=== PATIENT | female | born 1945 | race Caucasian/White ===

== ENCOUNTER → 2016-10-07 | Outpatient (CLI) | payer MEDICARE, BC ==
--- NOTE | 2016-10-07 20:23 | MR ---
EXAM DATE: 10/07/16 PATIENT'S AGE: 71 Patient: KIARA GREEN Facility: [place], [place] Site . Site : 1945 Study: MRI Head [id number]/10/2017 10:55:12 AM Ordering Physician: Vivian Nichols Final Report: Indication: 71-year-old female. Migraine headache unspecified. Not intractable. Without aura. Technique: FLAIR axial, T2 axial, diffusion axial, ADC map axial, susceptibility weighted axial and volumetric multiplanar T1 weighted images acquired. Findings: There is no restricted diffusion. There is no pathologic susceptibility. For the patient`s age ventricles are small normal. Cerebellar tonsils normally situated. 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 There is no pathologic intra-axial signal. Subarachnoid spaces over the high paramedian frontal convexities are prominent with findings suggesting of remodeling of the inner table. Note coronal image #36 of series 202. Paranasal and mastoid air cells are clear. Usual flow void is present in the [place]. Intraorbital tissues are normal. Impression: 1. No restricted diffusion, no pathologic susceptibility no acute intracranial findings. 2. 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 3. For patient`s age, the ventricles are small-normal. Considerations include normal developmental variation and pseudotumor cerebri. Correlation for findings related to tumor such as a papilledema is suggested. There is no dilatation of the optic nerve sleeves to suggest increased intracranial pressure. 4. Prominent CSF spaces over the high paramedian frontal convexities likely represent arachnoid cysts as evidenced by remodeling of the inner table on the left. This finding has doubtful clinical significance. Dictated by Kendall Rucker MD @ Oct 07 2016 4:44PM (Electronic Signature) Report Signed by Proxy and Original Signed Document filed in the Medical Record. [facility]
== END ==
LOC: MW.MRI 09:12
PROVIDERS: ATTEND Family Medicine
DX: G43.909 Migraine, unspecified, not intractable, without status migrainosus (principal); J01.90 Acute sinusitis, unspecified
CPT/HCPCS: 70551; G0463

== ENCOUNTER → 2016-10-13 | Outpatient (CLI) | payer MEDICARE, BC | LOC: MW.CHFP 08:00 | PROVIDERS: ATTEND Family Medicine | DX: G43.909 Migraine, unspecified, not intractable, without status migrainosus (principal) | CPT/HCPCS: G0463 ==

== ENCOUNTER 2017-02-23 00:39 | Emergency (ER) | payer MEDICARE, BC ==
[2017-02-23] MEDS ORDERED: Sodium Chloride 0.9% 2.5 ML Syringe FLUSH PRN (00:54)
[2017-02-23] MEDS ORDERED: Sodium Chloride 0.9% 10 ML Syringe FLUSH PRN (00:54)
[2017-02-23] MEDS ORDERED: Aspirin 81 MG Tab.Chew PO ONE (00:54)
[2017-02-23] MEDS ORDERED: Pantoprazole 40 MG Vial IVPUSH ONE (00:54)
--- NOTE | 2017-02-23 00:59 | EDM.PDOC ---
ED HPI GENERAL MEDICAL PROBLEM - General Chief Complaint: Chest Pain Stated Complaint: CHEST PAIN Time Seen by Provider: 02/23/17 00:41 - History of Present Illness INITIAL COMMENTS - FREE TEXT/NARRATIVE: HISTORY AND PHYSICAL: History of present illness: The patient is a 71-year-old female with a history of hypercholesterolemia and hypothyroidism for which she takes medications and she follows in our family practice clinic; the patient presents tonight episodic lower midsternal/ epigastric discomfort that has been ongoing for the last 24 hours. Patient states she has had several episodes of this each one lasting approximately 30- 40 minutes and most associated with some nausea but no diaphoresis shortness of breath vomiting or syncope. The patient said she has been using over-the- counter Carly-[place] to help her bowels and this will relieve the discomfort. She says that in the last 24 hour she said proximally 12 episodes of this discomfort. The patient thought it was acid reflux and only came in this evening because discomfort radiated to her mid back between her shoulder blades and that concerned her. On arrival here in the emergency department she has no chest discomfort no epigastric discomfort and no discomfort in her back. The patient said that this evening and she was getting ready to go to bed she had the discomfort and use the C[place] p.m. and try to go to sleep but when she was unable to sleep and the pain moved to her back she thought she should come here. He did not radiate to her arm or jaw. She is currently not short of breath or nauseated. The patient has no cigarette social history and has a history of a father having a CABG in his 70s. The patient had a wellness blood draw here at our hospital on February 08 which included a CBC CMP TSH cholesterol and triglycerides all of which were reviewed by me. They were all within normal limits. The patient also had a myocardial stress test performed here on June 30, 2016 and those results were also reviewed by me. The Cardiolite exercise stress component of it resulted in a negative stress test for ischemic ST changes but poor exercise tolerance. The nuclear medicine component of it revealed no evidence of myocardial ischemia normal ventricular chamber size and EF of approximately 70%. The patient states she was not told that she needed any emergent follow-up with her provider clinic. The patient currently has no abdominal complaints and says that she has had no abdominal surgeries. Review of systems: As per history of present illness and below otherwise all systems reviewed and negative. Past medical history: As per history of present illness and as reviewed below otherwise noncontributory. Surgical history: As per history of present illness and as reviewed below otherwise noncontributory. Social history: No reported history of drug or alcohol abuse. Family history: As per history of present illness and as reviewed below otherwise noncontributory. Physical exam: Gen.: Well-developed well-nourished female who is nontoxic and vital signs of been reviewed by me. She moves easily in the ED without distress. HEENT: Atraumatic, normocephalic, pupils reactive, negative for conjunctival pallor or scleral icterus, mucous membranes moist, throat clear, neck supple, nontender, trachea midline. Lungs: Clear to auscultation, breath sounds equal bilaterally, chest nontender. No worker breathing or sensory muscle use Heart: S1S2, regular, negative for clicks, rubs, or JVD. Abdomen: Soft, nondistended, nontender. On deep palpation in the epigastrium and upper quadrants I am unable to reproduce any discomfort. Negative for masses or hepatosplenomegaly. Negative for costovertebral tenderness. Pelvis: Stable nontender. Genitourinary: Deferred. Rectal: Deferred. Extremities: Atraumatic, negative for cords or calf pain. Neurovascular unremarkable. No pedal edema or leg asymmetry Neuro: Awake, alert, oriented. Cranial nerves II through XII unremarkable. Cerebellum unremarkable. Motor and sensory unremarkable throughout. Exam nonfocal. Skin: No diaphoresis, no overt rashes or lesions and turgor is normal Diagnostics: EKG CBC CMP amylase lipase troponin chest x-ray Therapeutics: IV O2 monitor aspirin Protonix Patient states she is feeling much improved after the proton next and all testing results were discussed with her and her at bedside. I have offered them admission for serial EKGs and enzymes and cardiac monitoring and they defer at this time. I have also offered to do a CT scan of the chest and abdomen to see if we can identify any pathology triggering her discomfort and again she would like to defer that at this time. They'd prefer to follow-up in the clinic with Dr. Park and pursue GI testing at that time. I've advised him of the risks and benefits and the patient is competent and capable of making her decisions and still defers the admission. I will prescribe Protonix for home and strongly advised close follow-up with their family physician either tomorrow or on Monday. I told him to call the clinic for this appointment. I've advised him on reasons to return and if she goes home and changes her mind she can return for admission. Impression: Chest/epigastric pain etiology unclear stable deferring admission Definitive disposition and diagnosis as appropriate pending reevaluation and review of above. Sternal to MidBack Pain Score (Numeric/FACES): 4 - Related Data Allergies Allergy/AdvReac Type Severity Reaction Status Date / Time No Known Allergies Allergy Verified 02/23/17 00:45 Home Meds: Home Meds Levothyroxine [Synthroid] 88 mcg PO ACBREAKFAST 05/10/15 [History] atorvaSTATin [Lipitor] 20 mg PO BEDTIME 05/10/15 [History] Past Medical History Endocrine/Metabolic History: Reports: Hypothyroidism - Past Surgical History Female Surgical History: Reports: Hysterectomy Social & Family History - Family History Family Medical History: Noncontributory - Tobacco Use Smoking Status *Q: Never Smoker Second Hand Smoke Exposure: No - Recreational Drug Use Recreational Drug Use: No ED ROS GENERAL - Review of Systems Review Of Systems: ROS reveals no pertinent complaints other than HPI. ED EXAM, GENERAL - Physical Exam Exam: See Below (See dictation) Course - Vital Signs Last Recorded V/S: Last Vital Signs Temp 36.2 C 02/23/17 00:43 Pulse 64 02/23/17 01:00 Resp 14 02/23/17 01:00 BP 149/83 H 02/23/17 01:00 Pulse Ox 95 02/23/17 01:00 - Orders/Labs/Meds Orders: Active Orders 24 hr Category Date Time Status Cardiac Monitoring [RC] . DIRECTED Care 02/23/17 00:53 Active EKG Documentation Completion [RC] STAT Care 02/23/17 00:53 Active Oxygen Therapy, ED [RC] ASDIRECTED Care 02/23/17 00:53 Active Pulse Oximetry [RC] ASDIRECTED Care 02/23/17 00:53 Active Chest 1V Frontal [CR] Stat Exams 02/23/17 00:53 Taken Sodium Chloride 0.9% [Saline Flush] Med 02/23/17 00:54 Active 10 ml FLUSH ASDIRECTED PRN Sodium Chloride 0.9% [Saline Flush] Med 02/23/17 00:54 Active 2.5 ml FLUSH ASDIRECTED PRN Saline Lock Insert [OM.PC] Stat Oth 02/23/17 00:53 Ordered Medication Orders Sodium Chloride (Saline Flush) 10 ml FLUSH ASDIRECTED PRN PRN Reason: Keep Vein Open Last Admin: 02/23/17 01:10 Dose: 10 ml Sodium Chloride (Saline Flush) 2.5 ml FLUSH ASDIRECTED PRN PRN Reason: Keep Vein Open Last Admin: 02/23/17 01:05 Dose: 2.5 ml Labs: Laboratory Tests 02/23/17 02/23/17 02/23/17 Range/Units 00:52 00:52 00:52 WBC 7.53 (4.0-11.0) K/uL RBC 4.21 L (4.30-5.90) M/uL Hgb 13.0 (12.0-16.0) g/dL Hct 38.3 (36.0-46.0) % MCV 91.0 (80.0-98.0) fL MCH 30.9 (27.0-32.0) pg MCHC 33.9 (31.0-37.0) g/dL RDW Std Deviation 39.9 (28.0-62.0) fl RDW Coeff of Faye 12 (11.0-15.0) % Plt Count 180 (150-400) K/uL MPV 9.50 (7.40-12.00) fL Neut % (Auto) 43.8 L (48.0-80.0) % Lymph % (Auto) 43.3 H (16.0-40.0) % [place] % (Auto) 11.2 (0.0-15.0) % Eos % (Auto) 1.3 (0.0-7.0) % Baso % (Auto) 0.4 (0.0-1.5) % Neut # (Auto) 3.3 (1.4-5.7) K/uL Lymph # (Auto) 3.3 H (0.6-2.4) K/uL [place] # (Auto) 0.8 (0.0-0.8) K/uL Eos # (Auto) 0.1 (0.0-0.7) K/uL Baso # (Auto) 0.0 (0.0-0.1) K/uL Sodium 140 (136-146) mmol/L Potassium 3.9 (3.5-5.1) mmol/L Chloride 107 (98-110) mmol/L Carbon Dioxide 25 (21-31) mmol/L BUN 13 (6.0-23.0) mg/dL Creatinine 0.8 (0.6-1.5) mg/dL Est Cr Clr Drug Dosing 67.22 mL/min Estimated GFR (MDRD) > 60.0 ml/min Glucose 102 (60-110) mg/dL Calcium 9.4 (8.8-10.8) mg/dL Total Bilirubin 0.3 (0.1-1.5) mg/dL AST 19 (5-40) IU/L ALT 17 (8-54) IU/L Alkaline Phosphatase 41 (40-150) Troponin I < 0.10 (0.0-0.29) NG/ML Total Protein 6.8 (6.0-8.0) g/dL Albumin 4.0 (3.4-4.8) g/dL Globulin 2.8 (2.0-3.5) g/dL Albumin/Globulin Ratio 1.4 (1.3-2.8) Amylase 60 (10-90) U/L Lipase 65 (7-80) U/L Meds: Medications Generic Name Dose Route Start Last Admin Trade Name Freq PRN Reason Stop Dose Admin Sodium Chloride 10 ml 02/23/17 00:54 02/23/17 01:10 Saline Flush FLUSH 10 ml ASDIRECTED PRN Administration Keep Vein Open Sodium Chloride 2.5 ml 02/23/17 00:54 02/23/17 01:05 Saline Flush FLUSH 2.5 ml ASDIRECTED PRN Administration Keep Vein Open Discontinued Medications Generic Name Dose Route Start Last Admin Trade Name Freq PRN Reason Stop Dose Admin Aspirin 324 mg 02/23/17 00:54 02/23/17 01:04 Aspirin PO 02/23/17 00:55 324 mg ONETIME ONE Administration Pantoprazole Sodium 40 mg 02/23/17 00:54 02/23/17 01:05 Protonix Iv IVPUSH 02/23/17 00:55 40 mg .BOLUS ONE Administration Departure - Departure Time of Disposition: 01:58 Disposition: Home, Self-Care 01 Condition: Good Clinical Impression: Epigastric pain Chest pain Qualifiers: Chest pain type: unspecified Qualified Code(s): R07.9 - Chest pain, unspecified - Discharge Information Forms: ED Department Discharge Additional Instructions: The following information is given to patients seen in the emergency department who are being discharged to home. This information is to outline your options for follow-up care. We provide all patients seen in our emergency department with a follow-up referral. The need for follow-up, as well as the timing and circumstances, are variable depending upon the specifics of your emergency department visit. If you don't have a primary care physician on staff, we will provide you with a referral. We always advise you to contact your personal physician following an emergency department visit to inform them of the circumstance of the visit and for follow-up with them and/or the need for any referrals to a consulting specialist. The emergency department will also refer you to a specialist when appropriate. This referral assures that you have the opportunity for followup care with a specialist. All of these measure are taken in an effort to provide you with optimal care, which includes your followup. Under all circumstances we always encourage you to contact your private physician who remains a resource for coordinating your care. When calling for followup care, please make the office aware that this follow-up is from your recent emergency room visit. If for any reason you are refused follow-up, please contact the [facility] emergency department at and ask to speak to the emergency department charge nurse. [facility] Primary care- Internal [place] [address] Please contact the clinic tomorrow for follow-up this week as we discussed and use the Protonix you have prescribed and as directed. Please return to ER as needed and as discussed. - My Orders Last 24 Hours: My Active Orders 02/23/17 00:53 Cardiac Monitoring [RC] . DIRECTED EKG Documentation Completion [RC] STAT Oxygen Therapy, ED [RC] ASDIRECTED Pulse Oximetry [RC] ASDIRECTED Chest 1V Frontal [CR] Stat Saline Lock Insert [OM.PC] Stat 02/23/17 00:54 Sodium Chloride 0.9% [Saline Flush] 10 ml FLUSH ASDIRECTED PRN Sodium Chloride 0.9% [Saline Flush] 2.5 ml FLUSH ASDIRECTED PRN - Assessment/Plan Last 24 Hours: My Active Orders 02/23/17 00:53 Cardiac Monitoring [RC] . DIRECTED EKG Documentation Completion [RC] STAT Oxygen Therapy, ED [RC] ASDIRECTED Pulse Oximetry [RC] ASDIRECTED Chest 1V Frontal [CR] Stat Saline Lock Insert [OM.PC] Stat 02/23/17 00:54 Sodium Chloride 0.9% [Saline Flush] 10 ml FLUSH ASDIRECTED PRN Sodium Chloride 0.9% [Saline Flush] 2.5 ml FLUSH ASDIRECTED PRN
[2017-02-23 01:25] LABS: CHLORIDE,CL 107 mmol/L (98-110); SODIUM,NA 140 mmol/L (136-146)
[2017-02-23 02:12] VITALS: BP 120/80
--- NOTE | 2017-02-23 09:44 | CR ---
EXAM DATE: 02/23/17 PATIENT'S AGE: 71 Patient: KIARA GREEN Facility: [place], [place] Site . Site : 1945 Study: XRay Chest [id number]/27/2017 1:08:47 AM Ordering Physician: Camden Padilla Final Report: INDICATIONS: Chest pain. TECHNIQUE: Chest 1 view. COMPARISON: None FINDINGS: No pneumothorax, pleural effusion or airspace consolidation. Cardiac and mediastinal contours are within normal limits. Upper abdomen and osseous structures show no acute abnormality. IMPRESSION: No evidence of acute cardiopulmonary disease. Dictated by Madhu Urbina MD @ 02/23/2017 1:12:42 AM Dictated by: Madhu Urbina MD @ 02/23/2017 01:12:50 (Electronic Signature) Report Signed by Proxy. [facility]
== END 2017-02-23 02:10 | disposition home or self-care (01) ==
LOC: MW.ED 00:39
DX: R07.9 Chest pain, unspecified (principal); R10.13 Epigastric pain; E03.9 Hypothyroidism, unspecified; Z90.710 Acquired absence of both cervix and uterus
CPT/HCPCS: 71010; 80053; 82150; 83690; 84484; 85025; 93005; 96374; 99285; A9270; C9113; 99284

== ENCOUNTER 2018-03-13 09:00 | Day surgery (SDC) | payer MEDICARE, BC ==
[~2018-03-13 09:00] MED LIST: Lactated Ringers 1,000 ML IV SCH; Lidocaine 2% 5 ML SDV ONE; Propofol 200 MG/20 ML SDV ONE; Sodium Chloride 0.9% 10 ML Syringe FLUSH PRN; Sodium Chloride 0.9% 2.5 ML Syringe FLUSH PRN; fentaNYL 100 MCG/2 ML SDV ONE
--- NOTE | 2018-03-13 09:24 | PCM.PREANE ---
Preanesthetic Assessment - Anesthesia/Transfusion/Family Hx Anesthesia History: Prior Anesthesia Without Reaction Family History of Anesthesia Reaction: No Transfusion History: No Prior Transfusion(s) Intubation History: Unknown - Review of Systems General: No Symptoms Pulmonary: No Symptoms Cardiovascular: No Symptoms Gastrointestinal: No Symptoms, Other (family h/o colon cancer) Neurological: No Symptoms Other: Reports: None - Physical Assessment Height: 1.73 m Weight: 71.214 kg ASA Class: 2 Mental Status: Alert & Oriented x3 Airway Class: Mallampati = 2 Dentition: Reports: Normal Dentition Thyro-Mental Finger Breadths: 2 ROM/Head Extension: Full Lungs: Clear to Auscultation, Normal Respiratory Effort Cardiovascular: Regular Rate, Regular Rhythm - Allergies Allergies/Adverse Reactions: Allergies Allergy/AdvReac Type Severity Reaction Status Date / Time contrast media Allergy "felt like Uncoded 03/08/18 13:08 I was going to " - Blood Blood Available: No - Anesthesia Plan Pre-Op Medication Ordered: None - Acknowledgements Anesthesia Type Planned: MAC Pt an Appropriate Candidate for the Planned Anesthesia: Yes Alternatives and Risks of Anesthesia Discussed w Pt/Guardian: Yes Pt/Guardian Understands and Agrees with Anesthesia Plan: Yes PreAnesthesia Questionnaire HEENT History: Reports: Other (See Below) Other HEENT History: wears glasses Cardiovascular History: Reports: High Cholesterol Gastrointestinal History: Reports: GERD Other Gastrointestinal History: occasional reflux Genitourinary History: Reports: Other (See Below) Other Genitourinary History: hx UTI's MANAGER ENGINE History: Reports: Neurological History: Reports: Concussion, Migraines (not in a long time) Endocrine/Metabolic History: Reports: Hypothyroidism - Past Surgical History Head Surgeries/Procedures: Reports: None GI Surgical History: Reports: Colonoscopy (2 or 3 times) Female Surgical History: Reports: Hysterectomy - SUBSTANCE USE Smoking Status *Q: Never Smoker Recreational Drug Use History: No - HOME MEDS Home Medications: Home Meds Levothyroxine [Synthroid] 88 mcg PO ACBREAKFAST 05/10/15 [History] atorvaSTATin [Lipitor] 20 mg PO BEDTIME 05/10/15 [History] Acyclovir [Zovirax 5% Oint] 1 applic TOP ASDIRECTED PRN 03/08/18 [History] Aspirin [[place] Aspirin] 81 mg PO DAILY 03/08/18 [History] Calcium Carbonate [Calcium] 1 tab PO BID 03/08/18 [History] Estradiol [Estrace 0.01% Vaginal Crm] 1 applic VAG ASDIRECTED 03/08/18 [History] Ibuprofen 2 - 3 tab PO ASDIRECTED PRN 03/08/18 [History] Isomethepten/Caf/Acetaminophen [Nzeocjrsry-Dmnd-Wnmaokivzhryd] 2 tab PO ASDIRECTED PRN 03/08/18 [History] Triamcinolone Acetonide [Triamcinolone Acetonide 0.1% Crm] 1 applic TOP ASDIRECTED PRN 03/08/18 [History] Zolpidem Tartrate 0.5 tab PO BEDTIME PRN 03/08/18 [History] - CURRENT (IN HOUSE) MEDS Current Meds: Current Medications Lactated Ringer's (Ringers, Lactated) 1,000 mls @ 125 mls/hr IV ASDIRECTED WINNIE Sodium Chloride (Saline Flush) 10 ml FLUSH ASDIRECTED PRN PRN Reason: Keep Vein Open Sodium Chloride (Saline Flush) 2.5 ml FLUSH ASDIRECTED PRN PRN Reason: Keep Vein Open Sodium Chloride (Saline Flush) 10 ml FLUSH ASDIRECTED PRN PRN Reason: Keep Vein Open Sodium Chloride (Saline Flush) 2.5 ml FLUSH ASDIRECTED PRN PRN Reason: Keep Vein Open Discontinued Medications Fentanyl (Sublimaze) Confirm Administered Dose 100 mcg .ROUTE .STK-MED ONE Stop: 03/13/18 07:02 Lidocaine (Xylocaine-Mpf 2%) Confirm Administered Dose 5 ml .ROUTE .STK-MED ONE Stop: 03/13/18 07:02 Propofol (Diprivan 20 Ml) Confirm Administered Dose 400 mg .ROUTE .STK-MED ONE Stop: 03/13/18 07:02
[2018-03-13] MEDS ORDERED: Glycopyrrolate 0.2 MG/ML SDV ONE (10:26)
--- NOTE | 2018-03-13 10:48 | PCM.OPNOTE ---
- General Post-Op/Procedure Note Date of Surgery/Procedure: 03/13/18 Operative Procedure(s): diagnostic colonoscopy Findings: rectal polyp, diverticulosis Pre Op Diagnosis: change in bowel habits Post-Op Diagnosis: diverticulosis, rectal polyp Anesthesia Technique: [facility] Primary Surgeon: Shavon Greene Condition: Good
--- NOTE | 2018-03-13 11:00 | PCM.POSTAN ---
POST ANESTHESIA ASSESSMENT - MENTAL STATUS Mental Status: Alert, Oriented - RESPIRATORY Respiratory Status: Respiratory Rate WNL, Airway Patent, O2 Saturation Stable - CARDIOVASCULAR CV Status: Pulse Rate WNL, Blood Pressure Stable - GASTROINTESTINAL GI Status: No Symptoms - POST OP HYDRATION Hydration Status: Adequate & Stable
[2018-03-13 11:12] VITALS: BP 109/64
--- NOTE | 2018-03-14 00:12 | OR ---
SURGEON: FAYE NG MD DATE OF PROCEDURE: 03/13/2018 PREOPERATIVE DIAGNOSIS: Change in bowel habits. POSTOPERATIVE DIAGNOSES: 1. Diverticulosis. 2. Rectal polyp. PROCEDURE PERFORMED: Diagnostic colonoscopy. ANESTHESIA: MAC. INSTRUMENT USED: Olympus colonoscope. EXTENT OF EXAM: To the cecum. PREPARATION: Good. LIMITATIONS: None. INDICATION FOR EXAMINATION: The patient is a 72-year-old female, who presents with an acute change in her bowel habits. Her last colonoscopy was 5 years ago and was normal. Her mother was diagnosed with colon cancer at the age of 75. We discussed the need for a diagnostic colonoscopy. I explained the procedure, expected perioperative course, and risks including bleeding, infection, or damage to surrounding structures including perforation. The patient verbalized understanding and wishes to proceed. PROCEDURE IN DETAIL: The patient was brought to the endoscopy suite and placed in the left lateral decubitus position. A time-out was completed verifying the patient's name, age, date of , allergies, and procedure to be performed. Monitored anesthesia care was induced, and continuous oxygen was provided via nasal cannula throughout the procedure. After adequate sedation was achieved, a digital rectal exam was performed. This exam was within normal limits. A well- lubricated colonoscope was inserted in the rectum and advanced under direct visualization to the level of the cecum. The cecum was identified by both visual and anatomic landmarks. Photographs were taken of the cecal cap; however, I was unable to retroflex the scope within the cecum due to looping of the scope more proximally. The scope was then fully withdrawn while examining the color, texture, anatomy, and integrity of the mucosa from the cecum to the anal canal. The patient was found to have diverticulosis throughout the sigmoid colon. A small 1 to 2 mm sessile polyp was noted within the rectum. This was removed using cold biopsy forceps. The scope was then retroflexed to allow visualization of the anal canal opening. This appeared normal, and photographs were taken. The scope was then straightened out and fully withdrawn. The cecum to anus time was 9 minutes. The patient tolerated the procedure well and was taken to the PACU in stable condition. ENDOSCOPIC DIAGNOSES: 1. Diverticulosis. 2. Polyp of the rectum. RECOMMENDATIONS: Follow up in clinic in 2 weeks. KIRIT MOJICA /[id number]
== END 2018-03-13 12:00 | disposition home or self-care (01) ==
LOC: MW.SDS 09:00
PROVIDERS: ATTEND Surgery
DX: R19.4 Change in bowel habit (principal); K62.1 Rectal polyp; K57.30 Diverticulosis of large intestine without perforation or abscess without bleeding; E03.9 Hypothyroidism, unspecified; E78.00 Pure hypercholesterolemia, unspecified; K21.9 Gastro-esophageal reflux disease without esophagitis; N64.4 Mastodynia; Z86.010 Personal history of colon polyps; Z79.82 Long term (current) use of aspirin; Z79.899 Other long term (current) drug therapy; Z91.041 Radiographic dye allergy status; Z80.0 Family history of malignant neoplasm of digestive organs
CPT/HCPCS: 45380; J2704; J3010; J3490; J7120; 88305

== ENCOUNTER 2019-04-01 18:24 | Emergency (ER) | payer MEDICARE, BC ==
--- NOTE | 2019-04-01 18:39 | EDM.PDOC ---
ED HPI GENERAL MEDICAL PROBLEM - General Chief Complaint: Genitourinary Problem Stated Complaint: UTI Time Seen by Provider: 04/01/19 18:31 - History of Present Illness INITIAL COMMENTS - FREE TEXT/NARRATIVE: HISTORY AND PHYSICAL: History of present illness: Patient 73-year-old white female presents with a concern of discomfort with urination frequency 1 day she's had similar episodes in the past consistent with urinary tract infection. She denies back pain fever chills nausea vomiting or other complaints Review of systems: As per history of present illness and below otherwise all systems reviewed and negative. Past medical history: As per history of present illness and as reviewed below otherwise noncontributory. Surgical history: As per history of present illness and as reviewed below otherwise noncontributory. Social history: No reported history of drug or alcohol abuse. Family history: As per history of present illness and as reviewed below otherwise noncontributory. Physical exam: HEENT: Atraumatic, normocephalic, pupils reactive, negative for conjunctival pallor or scleral icterus, mucous membranes moist, throat clear, neck supple, nontender, trachea midline. Lungs: Clear to auscultation, breath sounds equal bilaterally, chest nontender. Heart: S1S2, regular, negative for clicks, rubs, or JVD. Abdomen: Soft, nondistended, nontender. Negative for masses or hepatosplenomegaly. Negative for costovertebral tenderness. Pelvis: Stable nontender. Genitourinary: Deferred. Rectal: Deferred. Extremities: Atraumatic, negative for cords or calf pain. Neurovascular unremarkable. Neuro: Awake, alert, oriented. Cranial nerves II through XII unremarkable. Cerebellum unremarkable. Motor and sensory unremarkable throughout. Exam nonfocal. Diagnostics: UA Therapeutics: Cipro 500 mg by mouth Pyridium 200 mg by mouth Impression: #1 urinary tract infection Definitive disposition and diagnosis as appropriate pending reevaluation and review of above. - Related Data Allergies Allergy/AdvReac Type Severity Reaction Status Date / Time contrast media Allergy "felt like Uncoded 04/01/19 18:37 I was going to " Home Meds: Home Meds Levothyroxine [Synthroid] 88 mcg PO ACBREAKFAST 05/10/15 [History] atorvaSTATin [Lipitor] 20 mg PO BEDTIME 05/10/15 [History] Acyclovir [Zovirax 5% Oint] 1 applic TOP ASDIRECTED PRN 03/08/18 [History] Aspirin [[place] Aspirin EC] 81 mg PO DAILY 03/08/18 [History] Calcium Carbonate [Calcium] 1 tab PO BID 03/08/18 [History] Estradiol [Estrace 0.01% Vaginal Crm] 1 applic VAG ASDIRECTED 03/08/18 [History] Ibuprofen 2 - 3 tab PO ASDIRECTED PRN 03/08/18 [History] Isomethepten/Caf/Acetaminophen [Zkberwgtxm-Gdmp-Lplrtfplwytoe] 2 tab PO ASDIRECTED PRN 03/08/18 [History] Triamcinolone Acetonide [Triamcinolone Acetonide 0.1% Crm] 1 applic TOP ASDIRECTED PRN 03/08/18 [History] Zolpidem Tartrate 0.5 tab PO BEDTIME PRN 03/08/18 [History] Past Medical History HEENT History: Reports: Other (See Below) Other HEENT History: wears glasses Cardiovascular History: Reports: High Cholesterol Gastrointestinal History: Reports: GERD Other Gastrointestinal History: occasional reflux Genitourinary History: Reports: Other (See Below) Other Genitourinary History: hx UTI's 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 ED EXAM, GENERAL - Physical Exam Exam: See Below (See dictation) Departure - Departure Time of Disposition: 18:38 Disposition: Home, Self-Care 01 Condition: Good Clinical Impression: UTI, Urinary tract infectious disease - Discharge Information Referrals: Lex Park MD [Primary Care Provider] - Additional Instructions: The following information is given to patients seen in the emergency department who are being discharged to home. This information is to outline your options for follow-up care. We provide all patients seen in our emergency department with a follow-up referral. The need for follow-up, as well as the timing and circumstances, are variable depending upon the specifics of your emergency department visit. If you don't have a primary care physician on staff, we will provide you with a referral. We always advise you to contact your personal physician following an emergency department visit to inform them of the circumstance of the visit and for follow-up with them and/or the need for any referrals to a consulting specialist. The emergency department will also refer you to a specialist when appropriate. This referral assures that you have the opportunity for followup care with a specialist. All of these measure are taken in an effort to provide you with optimal care, which includes your followup. Under all circumstances we always encourage you to contact your private physician who remains a resource for coordinating your care. When calling for followup care, please make the office aware that this follow-up is from your recent emergency room visit. If for any reason you are refused follow-up, please contact the [facility] emergency department at and asked to speak to the emergency department charge nurse. Cipro Pyridium as prescribed push fluids follow primary medical doctor as needed as discussed and return as needed as discussed
[2019-04-01 18:41] VITALS: BP 114/77
[2019-04-01] MEDS ORDERED: Ciprofloxacin 500 MG Tab PO ONE (18:44)
[2019-04-01] MEDS ORDERED: Phenazopyridine 200 MG Tab PO ONE (18:45)
== END 2019-04-01 19:10 | disposition home or self-care (01) ==
LOC: MW.ED 18:24
DX: N39.0 Urinary tract infection, site not specified (principal); E78.00 Pure hypercholesterolemia, unspecified; E03.9 Hypothyroidism, unspecified; Z79.82 Long term (current) use of aspirin; Z79.899 Other long term (current) drug therapy; Z91.041 Radiographic dye allergy status; Z90.710 Acquired absence of both cervix and uterus
CPT/HCPCS: 81001; 87086; 99283; A9270; 87088; 87186

== ENCOUNTER 2019-07-16 02:57 | Emergency (ER) | payer MEDICARE, BC ==
[2019-07-16] MEDS ORDERED: Sodium Chloride 0.9% 10 ML Syringe FLUSH PRN (03:04)
[2019-07-16] MEDS ORDERED: Aspirin 81 MG Tab.Chew PO ONE (03:04)
[2019-07-16] MEDS ORDERED: Pantoprazole 80 MG in Sodium Chloride 0.9% 20 ML IVPUSH ONE (03:04)
[2019-07-16] MEDS ORDERED: Sodium Chloride 0.9% 2.5 ML Syringe FLUSH PRN (03:04)
[2019-07-16] MEDS ORDERED: Nitroglycerin 2% Oint 1 GM UD Packet TOP ONE (03:09)
--- NOTE | 2019-07-16 03:09 | EDM.PDOC ---
ED HPI GENERAL MEDICAL PROBLEM - General Stated Complaint: CHEST PAIN Time Seen by Provider: 07/16/19 03:03 - History of Present Illness INITIAL COMMENTS - FREE TEXT/NARRATIVE: HISTORY AND PHYSICAL: History of present illness: Patient is a 73-year-old female with hypercholesterolemia and hypothyroidism who is never had cardiac or pulmonary issues and has never had cardiac testing and presents with mid lower sternal chest pain that started last evening while she was at a concert at 930pm. The patient says she has a normal day yesterday without any upper respiratory symptoms cough fever and has not had any trauma or stomach pain. She ate normally and had no nausea vomiting or diarrhea and no history of acid reflux or hiatal hernia. Patient said the pain came on gradually and initially was intermittent and she also seemed to have an ache in her back and she took an piri-loz-qvrvtup Pepcid and it seemed to improve it and then this morning the pain restarted and she took another kssp-jrn-ndchbav Pepcid and it is improving but not gone so she thought she should seek evaluation. Before she came in and took the Pepcid she would rate the pain as a 7/10 and it was like a pressure-like sensation only in the mid lower sternum without radiation or associated diaphoresis lightheadedness shortness of breath nausea or vomiting. Currently in the ED she is rating it as a 2/10. She has no leg pain or swelling and no recent travel and no other systemic issues. The patient still has her gallbladder but did not eat any rich or fatty foods this past evening. She does take antacid intermittently but not on a regular basis and has never been evaluated for a GI problem. He did not take any aspirin and only took the woal-wyy-edzwvqu Pepcid prior to coming here Review of systems: As per history of present illness and below otherwise all systems reviewed and negative. Past medical history: As per history of present illness and as reviewed below otherwise noncontributory. Surgical history: As per history of present illness and as reviewed below otherwise noncontributory. Social history: No reported history of drug or alcohol abuse. Family history: As per history of present illness and as reviewed below otherwise noncontributory. Physical exam: Dental: Well-developed well-nourished female who is nontoxic and vital signs are noted by me. HEENT: Atraumatic, normocephalic, negative for conjunctival pallor or scleral icterus, mucous membranes moist, throat clear, neck supple, nontender, trachea midline. Lungs: Clear to auscultation, breath sounds equal bilaterally, chest nontender. No wheezing stridor or work of breathing Heart: S1S2, regular, negative for clicks, rubs, or JVD. Abdomen: Soft, nondistended, nontender. I palpate the epigastrium the patient says she does feel pressure but it is not pain specifically. Bowel sounds are slightly hypoactive negative for masses or hepatosplenomegaly. Negative for costovertebral tenderness. Pelvis: Stable nontender. Genitourinary: Deferred. Rectal: Deferred. Extremities: Atraumatic, negative for cords or calf pain. Neurovascular unremarkable. Pedal edema or leg asymmetry Neuro: Awake, alert, oriented. Cranial nerves II through XII unremarkable. Cerebellum unremarkable. Motor and sensory unremarkable throughout. Exam nonfocal. Skin: No diaphoresis normal turgor no overt rashes or lesions Diagnostics: EKG chest x-ray CBC CMP amylase lipase troponin Therapeutics: IV O2 monitor aspirin Protonix nitro paste She is pain-free and that the ED with the treatment as above. I discussed with her and her significant other all testing results. I did note that the patient had a very similar presentation for which I saw her as the provider in January 2017 and she also then had a negative work-up. After a lengthy discussion with the patient and her the patient does not want to be admitted and declines admission and wants to follow-up with her provider in the family practice clinic. She understands my concerns and risks and my inability to completely rule out a cardiac event this evening and she accepts those. She assures me that she will follow-up and we will place her name on the expedited follow-up Impression: Chest pain Definitive disposition and diagnosis as appropriate pending reevaluation and review of above. epigastric Pain Score (Numeric/FACES): 2 - Related Data Allergies Allergy/AdvReac Type Severity Reaction Status Date / Time contrast media Allergy "felt like Uncoded 07/16/19 03:09 I was going to " Home Meds: Home Meds Levothyroxine [Synthroid] 88 mcg PO ACBREAKFAST 05/10/15 [History] atorvaSTATin [Lipitor] 20 mg PO BEDTIME 10/11/15 [History] Aspirin [[place] Aspirin EC] 81 mg PO DAILY 03/08/18 [History] Zolpidem Tartrate 0.5 tab PO BEDTIME PRN 03/08/18 [History] Past Medical History HEENT History: Reports: Other (See Below) Other HEENT History: wears glasses Cardiovascular History: Reports: High Cholesterol Gastrointestinal History: Reports: GERD Other Gastrointestinal History: occasional reflux Genitourinary History: Reports: Other (See Below) Other Genitourinary History: hx UTI's 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 ED EXAM, GENERAL - Physical Exam Exam: See Below (see Dictation) Course - Vital Signs Last Recorded V/S: Last Vital Signs Temp 35.7 C 07/16/19 02:57 Pulse 61 07/16/19 04:01 Resp 16 07/16/19 04:01 BP 112/70 07/16/19 04:01 Pulse Ox 93 L 07/16/19 04:01 - Orders/Labs/Meds Orders: Active Orders 24 hr Category Date Time Status Cardiac Monitoring [RC] . DIRECTED Care 07/16/19 03:03 Active EKG Documentation Completion [RC] STAT Care 07/16/19 03:03 Active Oxygen Therapy, ED [RC] ASDIRECTED Care 07/16/19 03:03 Active Pulse Oximetry [RC] ASDIRECTED Care 07/16/19 03:03 Active Sodium Chloride 0.9% [Saline Flush] Med 07/16/19 03:04 Active 10 ml FLUSH ASDIRECTED PRN Sodium Chloride 0.9% [Saline Flush] Med 07/16/19 03:04 Active 2.5 ml FLUSH ASDIRECTED PRN Saline Lock Insert [OM.PC] Stat Oth 07/16/19 03:03 Ordered Medication Orders Sodium Chloride (Saline Flush) 10 ml FLUSH ASDIRECTED PRN PRN Reason: Keep Vein Open Sodium Chloride (Saline Flush) 2.5 ml FLUSH ASDIRECTED PRN PRN Reason: Keep Vein Open Labs: Laboratory Tests 07/16/19 07/16/19 Range/Units 03:07 03:07 WBC 6.32 (4.0-11.0) K/uL RBC 4.52 (4.30-5.90) M/uL Hgb 14.1 (12.0-16.0) g/dL Hct 41.4 (36.0-46.0) % MCV 91.6 (80.0-98.0) fL MCH 31.2 (27.0-32.0) pg MCHC 34.1 (31.0-37.0) g/dL RDW Std Deviation 42.8 (28.0-62.0) fl RDW Coeff of Faye 13 (11.0-15.0) % Plt Count 188 (150-400) K/uL MPV 9.80 (7.40-12.00) fL Neut % (Auto) 33.1 L (48.0-80.0) % Lymph % (Auto) 51.3 H (16.0-40.0) % [place] % (Auto) 10.8 (0.0-15.0) % Eos % (Auto) 4.3 (0.0-7.0) % Baso % (Auto) 0.5 (0.0-1.5) % Neut # (Auto) 2.1 (1.4-5.7) K/uL Lymph # (Auto) 3.2 H (0.6-2.4) K/uL [place] # (Auto) 0.7 (0.0-0.8) K/uL Eos # (Auto) 0.3 (0.0-0.7) K/uL Baso # (Auto) 0.0 (0.0-0.1) K/uL Nucleated RBC % 0.0 /100WBC Nucleated RBCs # 0 K/uL Sodium 140 (136-145) mmol/L Potassium 4.2 (3.5-5.1) mmol/L Chloride 105 (98-107) mmol/L Carbon Dioxide 26.3 (21.0-32.0) mmol/L BUN 16 (7.0-18.0) mg/dL Creatinine 0.9 (0.6-1.0) mg/dL Est Cr Clr Drug Dosing 53.67 mL/min Estimated GFR (MDRD) > 60.0 ml/min Glucose 94 (74-106) mg/dL Calcium 9.2 (8.5-10.1) mg/dL Total Bilirubin 0.3 (0.2-1.0) mg/dL AST 22 (15-37) IU/L ALT 24 (14-63) IU/L Alkaline Phosphatase 46 (46-116) U/L Troponin I < 0.050 (0.000-0.056) ng/mL Total Protein 7.2 (6.4-8.2) g/dL Albumin 3.8 (3.4-5.0) g/dL Globulin 3.4 (2.6-4.0) g/dL Albumin/Globulin Ratio 1.1 (0.9-1.6) Amylase 67 (25-115) U/L Lipase 286 (73-393) U/L Meds: Medications Generic Name Dose Route Start Last Admin Trade Name Freq PRN Reason Stop Dose Admin Sodium Chloride 10 ml 07/16/19 03:04 Saline Flush FLUSH ASDIRECTED PRN Keep Vein Open Sodium Chloride 2.5 ml 07/16/19 03:04 Saline Flush FLUSH ASDIRECTED PRN Keep Vein Open Discontinued Medications Generic Name Dose Route Start Last Admin Trade Name Freq PRN Reason Stop Dose Admin Aspirin 324 mg 07/16/19 03:04 07/16/19 03:17 Aspirin PO 07/16/19 03:05 324 mg ONETIME ONE Administration Pantoprazole Sodium 80 mg/ 20 mls @ 420 mls/hr 07/16/19 03:04 07/16/19 03:18 Sodium Chloride IVPUSH 07/16/19 03:06 420 mls/hr ONETIME ONE Administration Nitroglycerin 0.5 gm 07/16/19 03:09 07/16/19 03:17 Nitro-Bid 2% TOP 07/16/19 03:10 0.5 gm ONETIME ONE Administration Departure - Departure Time of Disposition: 04:17 Disposition: Home, Self-Care 01 Condition: Good Clinical Impression: Chest pain Qualifiers: Chest pain type: unspecified Qualified Code(s): R07.9 - Chest pain, unspecified - Discharge Information Referrals: Small,Lex Neil, MD [Primary Care Provider] - Additional Instructions: The following information is given to patients seen in the emergency department who are being discharged to home. This information is to outline your options for follow-up care. We provide all patients seen in our emergency department with a follow-up referral. The need for follow-up, as well as the timing and circumstances, are variable depending upon the specifics of your emergency department visit. If you don't have a primary care physician on staff, we will provide you with a referral. We always advise you to contact your personal physician following an emergency department visit to inform them of the circumstance of the visit and for follow-up with them and/or the need for any referrals to a consulting specialist. The emergency department will also refer you to a specialist when appropriate. This referral assures that you have the opportunity for followup care with a specialist. All of these measure are taken in an effort to provide you with optimal care, which includes your followup. Under all circumstances we always encourage you to contact your private physician who remains a resource for coordinating your care. When calling for followup care, please make the office aware that this follow-up is from your recent emergency room visit. If for any reason you are refused follow-up, please contact the [facility] emergency department at and ask to speak to the emergency department charge nurse. [facility] Primary care- Internal Medicine and Family [address] [address] Please take all home medications as previously and connect with the clinic and schedule a follow-up appointment with your provider or one of his associates as we discussed. Return to ER as needed and as discussed Sepsis Event Note - Focused Exam Vital Signs: Vital Signs Temp Pulse Resp BP Pulse Ox Pulse Ox 07/16/19 04:01 61 16 112/70 93 L 07/16/19 03:40 62 14 128/71 97 97 07/16/19 03:13 59 L 18 133/76 95 07/16/19 02:57 35.7 C 64 18 145/82 H 95 Date Exam was Performed: 07/16/19 Time Exam was Performed: 04:16 - My Orders Last 24 Hours: My Active Orders 07/16/19 03:03 Cardiac Monitoring [RC] . DIRECTED EKG Documentation Completion [RC] STAT Oxygen Therapy, ED [RC] ASDIRECTED Pulse Oximetry [RC] ASDIRECTED Saline Lock Insert [OM.PC] Stat 07/16/19 03:04 Sodium Chloride 0.9% [Saline Flush] 10 ml FLUSH ASDIRECTED PRN Sodium Chloride 0.9% [Saline Flush] 2.5 ml FLUSH ASDIRECTED PRN - Assessment/Plan Last 24 Hours: My Active Orders 07/16/19 03:03 Cardiac Monitoring [RC] . DIRECTED EKG Documentation Completion [RC] STAT Oxygen Therapy, ED [RC] ASDIRECTED Pulse Oximetry [RC] ASDIRECTED Saline Lock Insert [OM.PC] Stat 07/16/19 03:04 Sodium Chloride 0.9% [Saline Flush] 10 ml FLUSH ASDIRECTED PRN Sodium Chloride 0.9% [Saline Flush] 2.5 ml FLUSH ASDIRECTED PRN
--- NOTE | 2019-07-16 03:42 | CR ---
INDICATION: pain ,sob TECHNIQUE: Chest 1 view. COMPARISON: None. FINDINGS: Cardiovascular and mediastinum: Heart size and vasculature are normal in caliber and appearance. Mediastinum is within normal limits. Lungs and pleural space: Lungs are clear. No sign of infiltrate or mass. No sign of pleural effusion. No pneumothorax. Bones and soft tissues: No significant findings. IMPRESSION: Unremarkable chest. Dictated by: Noe Mckenzie MD @ 07/16/2019 03:39:59 (Electronically Signed)
[2019-07-16 04:03] LABS: BLOOD UREA NITROGEN,BUN 16 mg/dL (7.0-18.0); CARBON DIOXIDE,CO2 26.3 mmol/L (21.0-32.0); CHLORIDE,CL 105 mmol/L (98-107); GLUCOSE RANDOM 94 mg/dL (74-106); LIPASE 286 U/L (73-393); POTASSIUM,K 4.2 mmol/L (3.5-5.1); SODIUM,NA 140 mmol/L (136-145)
[2019-07-16 04:24] VITALS: BP 120/71; PULSE 63
== END 2019-07-16 04:29 | disposition home or self-care (01) ==
LOC: MW.ED 02:57
DX: R07.9 Chest pain, unspecified (principal); E78.00 Pure hypercholesterolemia, unspecified; E03.9 Hypothyroidism, unspecified; Z79.82 Long term (current) use of aspirin; Z79.899 Other long term (current) drug therapy; Z91.041 Radiographic dye allergy status
CPT/HCPCS: 36415; 71045; 80053; 82150; 83690; 84484; 85025; 93005; 96374; 99285; A9270; C9113

== ENCOUNTER 2021-02-23 19:25 | Emergency (ER) | payer MEDICARE, BC ==
[2021-02-23 20:09] VITALS: BP 105/62; PULSE 73
--- NOTE | 2021-02-23 20:22 | EDM.PDOC ---
ED HPI GENERAL MEDICAL PROBLEM - General Chief Complaint: Genitourinary Problem Stated Complaint: POSSIBLE VAGINAL INFECTION Time Seen by Provider: 02/23/21 20:00 Source of Information: Reports: Patient History Limitations: Reports: No Limitations - History of Present Illness INITIAL COMMENTS - FREE TEXT/NARRATIVE: Presents reporting urinary frequency and and "uncomfortable" feeling when she voids. She states she has had many urinary tract infections previously and her symptoms are similar. She has had no fever, back pain, nausea or vomiting. 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 For those, she has been treated with clobetasol, triamcinolone/nystatin topical and Anusol suppository. - Related Data Allergies Allergy/AdvReac Type Severity Reaction Status Date / Time contrast media Allergy "felt like Uncoded 02/23/21 20:09 I was going to " Home Meds: Home Meds Levothyroxine [Synthroid] 88 mcg PO ACBREAKFAST 05/10/15 [History] atorvaSTATin [Lipitor] 20 mg PO BEDTIME 05/10/15 [History] Aspirin [Smith Aspirin EC] 81 mg PO DAILY 03/08/18 [History] Zolpidem Tartrate 0.5 tab PO BEDTIME PRN 03/08/18 [History] Sulfamethoxazole/Trimethoprim [Bactrim Ds Tablet] 1 tab PO BID #12 tablet 02/23/21 [Rx] Past Medical History - Past Health History Medical/Surgical History: Denies Medical/Surgical History HEENT History: Reports: Other (See Below) Other HEENT History: wears glasses Cardiovascular History: Reports: High Cholesterol Gastrointestinal History: Reports: GERD Other Gastrointestinal History: occasional reflux Genitourinary History: Reports: Other (See Below) Other Genitourinary History: hx UTI's 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: Neurological History: Reports: Concussion, Migraines Endocrine/Metabolic History: Reports: Hypothyroidism - Infectious Disease History Infectious Disease History: Reports: Chicken Pox, Shingles - Past Surgical History Head Surgeries/Procedures: Reports: None GI Surgical History: Reports: Colonoscopy Female Surgical History: Reports: Hysterectomy Social & Family History - Family History Family Medical History: No Pertinent Family History - Tobacco Use Tobacco Use Status *Q: Never Tobacco User - Caffeine Use Caffeine Use: Reports: Coffee - Recreational Drug Use Recreational Drug Use: No ED ROS GENERAL - Review of Systems Review Of Systems: Comprehensive ROS is negative, except as noted in HPI. ED EXAM, RENAL/ - Physical Exam Exam: See Below Exam Limited By: No Limitations General Appearance: Alert, No Apparent Distress Ears: Normal External Exam Nose: Normal Inspection Throat/Mouth: Normal Inspection Head: Atraumatic, Normocephalic Neck: Normal Inspection Respiratory/Chest: No Respiratory Distress, Lungs Clear, Normal Breath Sounds Cardiovascular: Regular Rate, Rhythm, No Murmur Back Exam: Normal Inspection Extremities: Normal Inspection, Normal Range of Motion Neurological: Alert, Oriented, Normal Cognition Psychiatric: Normal Affect, Normal Mood Skin Exam: Warm, Dry, Intact, Normal Color, No Rash Lymphatic: No Adenopathy Course - Vital Signs Last Recorded V/S: Last Vital Signs Temp 36.1 C 02/23/21 20:04 Pulse 73 02/23/21 20:04 Resp 16 02/23/21 20:04 BP 105/62 02/23/21 20:04 Pulse Ox 97 02/23/21 20:04 - Orders/Labs/Meds Labs: Laboratory Tests 02/23/21 Range/Units 20:00 Urine Color YELLOW Urine Appearance SLT CLOUDY Urine pH 5.5 (5.0-8.0) Ur Specific [place] 1.010 (1.001-1.035) Urine Protein NEGATIVE (NEGATIVE) mg/dL Urine Glucose (UA) NEGATIVE (NEGATIVE) mg/dL Urine Ketones NEGATIVE (NEGATIVE) mg/dL Urine Occult Blood LARGE H (NEGATIVE) Urine Nitrite POSITIVE H (NEGATIVE) Urine Bilirubin NEGATIVE (NEGATIVE) Urine Urobilinogen 0.2 (<2.0) EU/dL Ur Leukocyte Esterase MODERATE H (NEGATIVE) Urine RBC 10-15 (0-2/HPF) Urine WBC 30-40 (0-5/HPF) Ur Epithelial Cells RARE (NONE-FEW) Urine Bacteria 2+ H (NEGATIVE) Departure - Departure Time of Disposition: 20:41 Disposition: Home, Self-Care 01 Condition: Good Clinical Impression: UTI (urinary tract infection) Qualifiers: Urinary tract infection type: acute cystitis Hematuria presence: without hematu jocy Qualified Code(s): N30.00 - Acute cystitis without hematuria - Discharge Information Prescriptions: Sulfamethoxazole/Trimethoprim [Bactrim Ds Tablet] 1 tab PO BID #12 tablet Referrals: [place] MD [Primary Care Provider] - Forms: ED Department Discharge Additional Instructions: The following information is given to patients seen in the emergency department who are being discharged to home. This information is to outline your options f or follow-up care. We provide all patients seen in our emergency department with a follow-up referral. The need for follow-up, as well as the timing and circumstances, are variable depending upon the specifics of your emergency department visit. If you don't have a primary care physician on staff, we will provide you with a referral. We always advise you to contact your personal physician following an emergency department visit to inform them of the circumstance of the visit and for follow-up with them and/or the need for any referrals to a consulting specialist. The emergency department will also refer you to a specialist when appropriate. This referral assures that you have the opportunity for follow-up care with a specialist. All of these measure are taken in an effort to provide you with optimal care, which includes your follow-up. Under all circumstances we always encourage you to contact your private physician who remains a resource for coordinating your care. When calling for follow-up care, please make the office aware that this follow-up is from your recent emergency room visit. If for any reason you are refused follow-up, please contact the [facility] Emergency Department at and asked to speak to the emergency department charge nurse. 1. Drink Plenty of fluids 2. Take your antibiotic twice daily 3. Return promptly for fevers, back pain, vomiting Sepsis Event Note (ED) - Evaluation Sepsis Screening Result: No Definite Risk - Focused Exam Vital Signs: Vital Signs Temp Pulse Resp BP Pulse Ox 02/23/21 20:04 36.1 C 73 16 105/62 97
== END 2021-02-23 20:59 | disposition home or self-care (01) ==
LOC: MW.ED 19:25
DX: N30.00 Acute cystitis without hematuria (principal); E78.00 Pure hypercholesterolemia, unspecified; E03.9 Hypothyroidism, unspecified; Z91.041 Radiographic dye allergy status; Z79.82 Long term (current) use of aspirin; Z79.899 Other long term (current) drug therapy
CPT/HCPCS: 81001; 99283

== ENCOUNTER 2021-06-15 06:40 | Day surgery (SDC) | payer MEDICARE, BC ==
[~2021-06-15 06:40] MED LIST changes: -Lidocaine 2% 5 ML SDV ONE; -Propofol 200 MG/20 ML SDV ONE; +Sodium Chloride 0.9% 20 ML SDV IV PRN; -fentaNYL 100 MCG/2 ML SDV ONE
[2021-06-15] MEDS ORDERED: Propofol 200 MG/20 ML SDV ONE (07:22)
[2021-06-15] MEDS ORDERED: fentaNYL 100 MCG/2 ML SDV ONE (07:22)
--- NOTE | 2021-06-15 07:51 | PCM.PREANE ---
Preanesthetic Assessment - Anesthesia/Transfusion/Family Hx Anesthesia History: Prior Anesthesia Without Reaction Family History of Anesthesia Reaction: No Transfusion History: No Prior Transfusion(s) Intubation History: Unknown - Review of Systems General: No Symptoms Pulmonary: No Symptoms (Non-Smoker) Cardiovascular: No Symptoms (Pt states to walking 3 mile/day with no SOB or CP) Gastrointestinal: Other (GERD and rectal bleeding) Neurological: No Symptoms Other: Reports: Thyroid Problems (Hypo) - Physical Assessment NPO Status Date: 06/15/21 NPO Status Time: 00:00 Vital Signs: Last Vital Signs Temp 36.2 C 06/15/21 06:54 Pulse 69 06/15/21 06:54 Resp 14 06/15/21 06:54 BP 103/64 06/15/21 06:54 Pulse Ox 97 06/15/21 06:54 Height: 1.73 m Weight: 72.121 kg ASA Class: 2 Mental Status: Alert & Oriented x3 Airway Class: Mallampati = 2 Dentition: Reports: Normal Dentition Thyro-Mental Finger Breadths: 3 Mouth Opening Finger Breadths: 3 ROM/Head Extension: Full Lungs: Clear to Auscultation, Normal Respiratory Effort Cardiovascular: Regular Rate, Regular Rhythm - Allergies Allergies/Adverse Reactions: Allergies Allergy/AdvReac Type Severity Reaction Status Date / Time contrast media Allergy "felt like Uncoded 02/23/21 20:09 I was going to " - Blood Blood Available: No - Anesthesia Plan Pre-Op Medication Ordered: None - Acknowledgements Anesthesia Type Planned: General Anesthesia Pt an Appropriate Candidate for the Planned Anesthesia: Yes Alternatives and Risks of Anesthesia Discussed w Pt/Guardian: Yes Pt/Guardian Understands and Agrees with Anesthesia Plan: Yes PreAnesthesia Questionnaire - Past Health History Medical/Surgical History: Denies Medical/Surgical History HEENT History: Reports: Other (See Below) Other HEENT History: wears glasses Cardiovascular History: Reports: High Cholesterol Gastrointestinal History: Reports: GERD Other Gastrointestinal History: occasional reflux Genitourinary History: Reports: Other (See Below) Other Genitourinary History: hx UTI's 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5 tab PO BEDTIME PRN 03/08/18 [History] Sulfamethoxazole/Trimethoprim [Bactrim Ds Tablet] 1 tab PO BID #12 tablet 02/23/21 [Rx] - CURRENT (IN HOUSE) MEDS Current Meds: Current Medications Lactated Ringer's (Ringers, Lactated) 1,000 mls @ 125 mls/hr IV ASDIRECTED WINNIE Last Admin: 06/15/21 07:03 Dose: 125 mls/hr Documented by: Sodium Chloride (Sodium Chloride 0.9% 10 Ml Syringe) 10 ml FLUSH ASDIRECTED PRN PRN Reason: Keep Vein Open Sodium Chloride (Sodium Chloride 0.9% 2.5 Ml Syringe) 2.5 ml FLUSH ASDIRECTED PRN PRN Reason: Keep Vein Open Sodium Chloride (Sodium Chloride 0.9% 10 Ml Syringe) 10 ml FLUSH ASDIRECTED PRN PRN Reason: Keep Vein Open Sodium Chloride (Sodium Chloride 0.9% 2.5 Ml Syringe) 2.5 ml FLUSH ASDIRECTED PRN PRN Reason: Keep Vein Open Sodium Chloride (Sodium Chloride 0.9% 20 Ml Sdv) 10 ml IV ASDIRECTED PRN PRN Reason: IV Use Discontinued Medications Fentanyl (Fentanyl 100 Mcg/2 Ml Sdv) Confirm Administered Dose 100 mcg .ROUTE .STK-MED ONE Stop: 06/15/21 07:23 Propofol (Propofol 200 Mg/20 Ml Sdv) Confirm Administered Dose 400 mg .ROUTE .STK-MED ONE Stop: 06/15/21 07:23
[2021-06-15] MEDS ORDERED: Glycopyrrolate 0.2 MG/ML SDV ONE (09:44)
--- NOTE | 2021-06-15 10:01 | PCM.POSTAN ---
POST ANESTHESIA ASSESSMENT - MENTAL STATUS Mental Status: Somnolent - VITAL SIGNS Vital Signs: Last Vital Signs Temp 97.2 F 06/15/21 06:54 Pulse 78 06/15/21 09:53 Resp 15 06/15/21 09:53 BP 77/49 L 06/15/21 09:53 Pulse Ox 98 06/15/21 09:53 - RESPIRATORY Respiratory Status: Respiratory Rate WNL, Airway Patent, O2 Saturation Stable - CARDIOVASCULAR CV Status: Pulse Rate WNL, Blood Pressure Stable - GASTROINTESTINAL GI Status: No Symptoms - POST OP HYDRATION Hydration Status: Adequate & Stable
--- NOTE | 2021-06-15 10:02 | PCM48HPAN ---
Post Anesthesia Note - EVALUATION WITHIN 48HRS OF ANESTHETIC Vital Signs in Normal Range: Yes Patient Participated in Evaluation: Yes Respiratory Function Stable: Yes Airway Patent: Yes Cardiovascular Function Stable: Yes Hydration Status Stable: Yes Pain Control Satisfactory: Yes Nausea and Vomiting Control Satisfactory: Yes Mental Status Recovered: Yes Vital Signs: Last Vital Signs Temp 97.2 F 06/15/21 06:54 Pulse 74 06/15/21 09:58 Resp 14 06/15/21 09:58 BP 98/59 L 06/15/21 09:58 Pulse Ox 97 06/15/21 09:58
--- NOTE | 2021-06-15 10:06 | PCM.OPNOTE ---
- General Post-Op/Procedure Note Date of Surgery/Procedure: 06/15/21 Operative Procedure(s): Diagnostic colonoscopy Findings: Descending colon polyp x 2, diverticulosis Pre Op Diagnosis: Bright red bleeding per rectum Post-Op Diagnosis: Descending colon polyp x 2, diverticulosis Anesthesia Technique: MAC Primary Surgeon: Shavon Greene Condition: Good
--- NOTE | 2021-06-15 10:08 | PCM.OPNOTE ---
- General Post-Op/Procedure Note Date of Surgery/Procedure: 06/15/21 Condition: Good
[2021-06-15 10:34] VITALS: BP 102/61; PULSE 72
--- NOTE | 2021-06-15 16:43 | OR ---
SURGEON: SHAVON GREENE MD DATE OF PROCEDURE: 06/15/2021 PREOPERATIVE DIAGNOSIS: Bright red bleeding per rectum. POSTOPERATIVE DIAGNOSES: 1. Diverticulosis. 2. Descending colon polyps x2. PROCEDURE PERFORMED: Diagnostic colonoscopy. PRIMARY SURGEON: Shavon Greene MD ANESTHESIA: MAC. INSTRUMENT USED: Olympus colonoscope. EXTENT OF EXAM: To the cecum. PREPARATION: Good. LIMITATIONS: None. INDICATIONS FOR EXAMINATION: The patient is a 75-year-old female who presented to my clinic with intermittent bright red bleeding per rectum. Her digital rectal exam showed mildly enlarged hemorrhoids but not significant enough to explain her symptoms. The patient and I discussed the need for diagnostic colonoscopy. I explained the procedure, expected perioperative course, and the risks. She verbalized understanding and wishes to proceed. PROCEDURE IN DETAIL: The patient was brought in to the endoscopy suite and placed in a left lateral decubitus position. A time-out was completed verifying the patient's name, age, date of , allergies, and procedure to be performed. Monitored anesthesia care was induced and continuous oxygen was provided via nasal cannula throughout the procedure. After adequate sedation was achieved, a digital rectal exam was performed. This exam was within normal limits. A well-lubricated colonoscope was inserted into the rectum and advanced under direct visualization to the level of the cecum. The cecum was identified by both visual and anatomic landmarks. A photograph was taken of the cecal cap, however, due to looping of the scope more proximally, I was unable to retroflex the scope. The scope was then fully withdrawn while examining the color, texture, anatomy, and integrity of the mucosa from the cecum to the anal canal. The patient was found to have diverticulosis in the descending and sigmoid colon. She had two descending colon polyps which were small and sessile in nature. These were removed in piecemeal fashion and sent to Pathology labeled as descending colon polyps. The scope was then brought into the rectum and retroflexed to allow visualization of the anal canal opening. This appeared normal and a photograph was taken. The scope was then straightened out and fully withdrawn. The cecum to anus time was 12 minutes. The patient tolerated the procedure well and was transferred to the PACU in stable condition. ENDOSCOPIC DIAGNOSES: 1. Diverticulosis. 2. Descending colon polyp x2. RECOMMENDATION: Follow up in clinic in two weeks. KIRIT MOJICA /[id number]
== END 2021-06-15 10:55 | disposition home or self-care (01) ==
LOC: MW.SDS 06:40
PROVIDERS: ATTEND Surgery
DX: D12.4 Benign neoplasm of descending colon (principal); K57.31 Diverticulosis of large intestine without perforation or abscess with bleeding; E78.00 Pure hypercholesterolemia, unspecified; E03.9 Hypothyroidism, unspecified; G47.00 Insomnia, unspecified; K21.9 Gastro-esophageal reflux disease without esophagitis; Z91.041 Radiographic dye allergy status; Z88.8 Allergy status to other drugs, medicaments and biological substances; Z79.899 Other long term (current) drug therapy; Z79.82 Long term (current) use of aspirin; Z79.890 Hormone replacement therapy; Z98.890 Other specified postprocedural states
CPT/HCPCS: 45380; 88305; J2370; J2704; J3010; J3490; J7120; 00811; 99100

== ENCOUNTER 2021-07-11 07:58 | Emergency (ER) | payer MEDICARE, BC ==
--- NOTE | 2021-07-11 08:31 | EDM.PDOC ---
ED HPI GENERAL MEDICAL PROBLEM - General Chief Complaint: Genitourinary Problem Stated Complaint: PT STATES SHE HAS A UTI Time Seen by Provider: 07/11/21 08:01 Source of Information: Reports: Patient - History of Present Illness INITIAL COMMENTS - FREE TEXT/NARRATIVE: 75-year-old female presents complaining of pain with urination since last night. Patient has had frequent UTIs and a couple of weeks ago just got off of Macrobid. No back pain. No history of diabetes. No fevers. No exacerbating relieving factors or abdominal pain. Lower Abdomen Pain Score (Numeric/FACES): 4 - Related Data Allergies Allergy/AdvReac Type Severity Reaction Status Date / Time contrast media Allergy "felt like Uncoded 07/11/21 08:03 I was going to " Home Meds: Home Meds Levothyroxine [Synthroid] 88 mcg PO ACBREAKFAST 05/10/15 [History] atorvaSTATin [Lipitor] 20 mg PO BEDTIME 05/10/15 [History] Aspirin [[place] Aspirin EC] 81 mg PO DAILY 03/08/18 [History] Zolpidem Tartrate 0.5 tab PO BEDTIME PRN 03/08/18 [History] levoFLOXacin [Levaquin] 500 mg PO DAILY #4 tab 07/11/21 [Rx] Past Medical History - Past Health History Medical/Surgical History: Denies Medical/Surgical History HEENT History: Reports: Other (See Below) Other HEENT History: wears glasses Cardiovascular History: Reports: High Cholesterol Gastrointestinal History: Reports: GERD Other Gastrointestinal History: occasional reflux Genitourinary History: Reports: Other (See Below) Other Genitourinary History: hx UTI's 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: Neurological History: Reports: Concussion, Migraines Endocrine/Metabolic History: Reports: Hypothyroidism - Infectious Disease History Infectious Disease History: Reports: Chicken Pox, Shingles - Past Surgical History Head Surgeries/Procedures: Reports: None GI Surgical History: Reports: Colonoscopy Female Surgical History: Reports: Hysterectomy Social & Family History - Family History Family Medical History: No Pertinent Family History - Tobacco Use Tobacco Use Status *Q: Never Tobacco User Second Hand Smoke Exposure: No - Caffeine Use Caffeine Use: Reports: Coffee - Recreational Drug Use Recreational Drug Use: No ED ROS GENERAL - Review of Systems Review Of Systems: See Below Constitutional: Denies: Fever GI/Abdominal: Denies: Abdominal Pain : Reports: Dysuria Musculoskeletal: Denies: Back Pain ED EXAM, GENERAL - Physical Exam Exam: See Below Free Text/Narrative:: CONSTITUTIONAL: well appearing in no acute distress SKIN: dry, and intact without rash HENT: Normocephalic, atraumatic, NECK: normal range of motion PULMONARY: normal chest rise and fall, no respiratory distress or stridor NEUROLOGIC: normal speech, moves all extremities, grossly non-focal GI: No suprapubic tenderness. MUSCULOSKELETAL: no gross deformities, atraumatic. NO Flank tenderness PSYCHIATRIC: normal mood and affect Course - Vital Signs Text/Narrative:: Patient with UTI. No flank pain or suggestion of upper tract disease. Patient recently DC'd treatment with Macrobid. Will give Levaquin with return precautions Last Recorded V/S: Last Vital Signs Temp 36.1 C 07/11/21 08:05 Pulse 67 07/11/21 09:02 Resp 16 07/11/21 09:02 BP 112/79 07/11/21 09:02 Pulse Ox 96 07/11/21 09:02 - Orders/Labs/Meds Orders: Active Orders 24 hr Category Date Time Status CULTURE URINE [MREF] Stat Lab 07/11/21 08:45 Received UA W/MICROSCOPIC [URIN] Stat Lab 07/11/21 08:45 Results Labs: Laboratory Tests 07/11/21 Range/Units 08:45 Urine Color ORANGE Urine Appearance CLOUDY Urine pH 5.0 (5.0-8.0) Ur Specific [place] 1.025 (1.001-1.035) Urine Protein >=300 H (NEGATIVE) mg/dL Urine Glucose (UA) 100 H (NEGATIVE) mg/dL Urine Ketones 15 H (NEGATIVE) mg/dL Urine Occult Blood SMALL H (NEGATIVE) Urine Nitrite POSITIVE H (NEGATIVE) Urine Bilirubin MODERATE H (NEGATIVE) Urine Urobilinogen >=8.0 H (<2.0) EU/dL Ur Leukocyte Esterase LARGE H (NEGATIVE) Departure - Departure Time of Disposition: 09:08 Disposition: Home, Self-Care 01 Condition: Good Clinical Impression: UTI, Urinary tract infectious disease - Discharge Information Instructions: Urinary Tract Infection, Adult Forms: ED Department Discharge Additional Instructions: Return for back pain, vomiting, fevers, change or worsening condition or lack of improvement. Take antibiotics as prescribed. Follow-up with primary care doctor this coming week. The following information is given to patients seen in the emergency department who are being discharged to home. This information is to outline your options for follow-up care. We provide all patients seen in our emergency department with a follow-up referral. The need for follow-up, as well as the timing and circumstances, are variable depending upon the specifics of your emergency department visit. If you don't have a primary care physician on staff, we will provide you with a referral. We always advise you to contact your personal physician following an emergency department visit to inform them of the circumstance of the visit and for follow-up with them and/or the need for any referrals to a consulting specialist. The emergency department will also refer you to a specialist when appropriate. This referral assures that you have the opportunity for follow-up care with a specialist. All of these measure are taken in an effort to provide you with optimal care, which includes your follow-up. Primary care clinics in the area: [facility] - Primary Care [address] [place] [address] [place] [address] Under all circumstances we always encourage you to contact your private physician who remains a resource for coordinating your care. When calling for follow-up care, please make the office aware that this follow-up is from your recent emergency room visit. If for any reason you are refused follow-up, please contact the [facility] Emergency Department at and asked to speak to the emergency department charge nurse. Sepsis Event Note (ED) - Evaluation Sepsis Screening Result: No Definite Risk - Focused Exam Vital Signs: Vital Signs Temp Pulse Resp BP Pulse Ox 07/11/21 09:02 67 16 112/79 96 07/11/21 08:05 36.1 C 78 16 106/70 98 - My Orders Last 24 Hours: My Active Orders 07/11/21 08:45 CULTURE URINE [MREF] Stat UA W/MICROSCOPIC [URIN] Stat - Assessment/Plan Last 24 Hours: My Active Orders 07/11/21 08:45 CULTURE URINE [MREF] Stat UA W/MICROSCOPIC [URIN] Stat
[2021-07-11] MEDS ORDERED: Levofloxacin 500 MG Tab PO ONE (09:10)
[2021-07-11 09:22] VITALS: BP 127/68; PULSE 69
== END 2021-07-11 09:25 | disposition home or self-care (01) ==
LOC: MW.ED 07:58
DX: N39.0 Urinary tract infection, site not specified (principal); E78.00 Pure hypercholesterolemia, unspecified; K21.9 Gastro-esophageal reflux disease without esophagitis; E03.9 Hypothyroidism, unspecified; Z91.041 Radiographic dye allergy status; Z79.899 Other long term (current) drug therapy; Z79.82 Long term (current) use of aspirin
CPT/HCPCS: 81001; 87086; 99283; A9270

== ENCOUNTER 2022-02-20 22:26 | Emergency (ER) | payer MEDICARE, BC ==
[2022-02-20] MEDS ORDERED: Nitroglycerin 0.4 MG Tab.SL SL PRN (22:37)
[2022-02-20] MEDS ORDERED: Aspirin 81 MG Tab.Chew PO ONE (22:37)
[2022-02-20 23:23] LABS: CARBON DIOXIDE,CO2 27.8 mmol/L (21.0-32.0); POTASSIUM,K 4.2 mmol/L (3.5-5.1)
[2022-02-20] MEDS ORDERED: Iopamidol 755 MG/ML 500 ML Multipack Bottle IVPUSH ONE (23:51)
[2022-02-21 01:42] VITALS: BP 114/70; PULSE 65
== END 2022-02-21 01:43 | disposition home or self-care (01) ==
LOC: MW.ED 22:26
DX: R07.89 Other chest pain (principal); I10 Essential (primary) hypertension; E03.9 Hypothyroidism, unspecified; Z91.041 Radiographic dye allergy status; Z79.899 Other long term (current) drug therapy; Z79.82 Long term (current) use of aspirin; Z20.822 Contact with and (suspected) exposure to COVID-19
CPT/HCPCS: 36415; 71045; 71275; 80053; 83735; 83880; 84484; 85025; 85379; 85610; 85730; 93005; 99285; A9270; Q9967; U0002

== ENCOUNTER 2022-11-01 12:10 | Day surgery (SDC) | payer MEDICARE, BC ==
[~2022-11-01 12:10] MED LIST changes: +Propofol 200 MG/20 ML SDV ONE
[2022-11-01] MEDS ORDERED: Lidocaine 2% 5 ML SDV ONE (13:19)
[2022-11-01] MEDS ORDERED: Glycopyrrolate 0.2 MG/ML SDV ONE (13:23)
[2022-11-01 14:16] VITALS: BP 108/65; PULSE 73
== END 2022-11-01 14:30 | disposition home or self-care (01) ==
LOC: MW.SDS 12:10
PROVIDERS: ATTEND Surgery
DX: K29.50 Unspecified chronic gastritis without bleeding (principal); K25.9 Gastric ulcer, unspecified as acute or chronic, without hemorrhage or perforation; E78.00 Pure hypercholesterolemia, unspecified; E03.9 Hypothyroidism, unspecified; G47.00 Insomnia, unspecified; Z91.041 Radiographic dye allergy status; Z88.8 Allergy status to other drugs, medicaments and biological substances; Z79.899 Other long term (current) drug therapy; Z80.0 Family history of malignant neoplasm of digestive organs
CPT/HCPCS: 43239; J2704; J3490; J7120; 00731; 88305; 88342; 99100

== ENCOUNTER 2022-12-07 20:55 | Emergency (ER) | payer MEDICARE, BC ==
[2022-12-07] MEDS ORDERED: Ondansetron 4 MG/2 ML SDV IVPUSH ONE (21:48)
[2022-12-07] MEDS ORDERED: Sodium Chloride 0.9% 1,000 ML IV ONE (21:48)
[2022-12-07] MEDS ORDERED: Famotidine 20 MG/2 ML SDV IVPUSH ONE (21:53)
[2022-12-07 22:25] LABS: HEMATOCRIT 40.4 % (36.0-46.0); HEMOGLOBIN 13.7 g/dL (12.0-16.0); MEAN CORPUSCULAR HEMOGLOBIN 30.6 pg (27.0-32.0); MEAN CORPUSCULAR HGB CONC 33.9 g/dL (31.0-37.0); MEAN CORPUSCULAR VOLUME 90.4 fL (80.0-98.0); NRBC ABSOLUTE 0 K/uL; PLATELET COUNT,PLT 154 K/uL (150-400); RED BLOOD CELL COUNT 4.47 M/uL (4.30-5.90); WHITE BLOOD CELL COUNT,WBC 4.52 K/uL (4.0-11.0)
[2022-12-07 22:47] LABS: ALANINE AMINOTRANSFERASE,ALT 26 IU/L (14-63); ALBUMIN 3.3 g/dL (3.4-5.0); ALKALINE PHOSPHATASE 44 U/L (46-116); ASPARTATE AMNIOTRANSFERASE,AST 28 IU/L (15-37); BILIRUBIN TOTAL 0.2 mg/dL (0.2-1.0); BLOOD UREA NITROGEN,BUN 13 mg/dL (7.0-18.0); CALCIUM 8.3 mg/dL (8.5-10.1); CARBON DIOXIDE,CO2 23.3 mmol/L (21.0-32.0); CHLORIDE,CL 106 mmol/L (98-107); CREATININE 0.9 mg/dL (0.6-1.0); GLUCOSE RANDOM 94 mg/dL (74-106); LIPASE 85 U/L (73-393); MAGNESIUM 1.9 mg/dL (1.8-2.4); POTASSIUM,K 3.7 mmol/L (3.5-5.1); PROTEIN TOTAL,TP 6.6 g/dL (6.4-8.2); SODIUM,NA 140 mmol/L (136-145)
[2022-12-07 22:49] LABS: BILIRUBIN,URINE NEGATIVE (NEGATIVE); COLOR,URINE YELLOW; GLUCOSE,URINE NEGATIVE (NEGATIVE); KETONES,URINE NEGATIVE (NEGATIVE); LEUKOCYTE ESTERASE,URINE TRACE (NEGATIVE); NITRITE,URINE NEGATIVE (NEGATIVE); OCCULT BLOOD,URINE NEGATIVE (NEGATIVE); PH,URINE 5.5 (5.0-8.0); PROTEIN,URINE NEGATIVE (NEGATIVE); UROBILINOGEN,URINE 0.2 EU/dL (<2.0)
[2022-12-07 22:50] LABS: ESTIMATED GFR 67 mL/min (>60)
[2022-12-07 22:58] LABS: APPEARANCE,URINE HAZY
[2022-12-07 23:09] LABS: BAND ABSOLUTE MAN 0.3; BAND PERCENT MAN 6 %; EOSINOPHILS PERCENT MAN 1 % (0.0-7.0); LYMPHOCYTES ABSOLUTE MAN 1.4 (0.6-2.4); LYMPHOCYTES PERCENT MAN 32 % (16.0-40.0); MONOCYTES ABSOLUTE MAN 0.8 (0.0-0.8); MONOCYTES PERCENT MAN 17 % (0.0-15.0); SEG NEUTROPHILS PERCENT MAN 44 % (48.0-80.0)
[2022-12-07 23:12] LABS: BACTERIA,URINE FEW (NEGATIVE); EPITHELIAL CELLS,URINE OCCASIONAL (NONE-FEW); MUCUS,URINE HEAVY (NONE-MOD); RBC,URINE 0-2 (0-2/HPF); WBC,URINE 0-5 (0-5/HPF)
[2022-12-07 23:54] LABS: CORONAVIRUS COVID-19 NAA NEGATIVE (NEGATIVE); INFLUENZA A NAA NEGATIVE (NEGATIVE); INFLUENZA B NAA NEGATIVE (NEGATIVE)
[2022-12-08 00:17] VITALS: BP 112/67; PULSE 68
== END 2022-12-08 00:16 | disposition home or self-care (01) ==
LOC: MW.ED 20:55
DX: K52.9 Noninfective gastroenteritis and colitis, unspecified (principal); E78.00 Pure hypercholesterolemia, unspecified; K21.9 Gastro-esophageal reflux disease without esophagitis; E03.9 Hypothyroidism, unspecified; Z91.041 Radiographic dye allergy status; Z79.899 Other long term (current) drug therapy; Z79.82 Long term (current) use of aspirin; Z20.822 Contact with and (suspected) exposure to COVID-19
CPT/HCPCS: 0240U; 36415; 80053; 81001; 83605; 83690; 83735; 84484; 85025; 96361; 96374; 96375; 99284; J2405; J3490; J7030

== ENCOUNTER 2023-06-26 10:46 | Emergency (ER) | payer MEDICARE, BC ==
[2023-06-26 12:19] VITALS: BP 121/75
[2023-06-26 13:01] VITALS: PULSE 62
== END 2023-06-26 13:01 | disposition home or self-care (01) ==
LOC: MW.ED 10:46
DX: S90.02XA Contusion of left ankle, initial encounter (principal); M25.551 Pain in right hip; E78.00 Pure hypercholesterolemia, unspecified; E03.9 Hypothyroidism, unspecified; Z91.041 Radiographic dye allergy status; Z79.899 Other long term (current) drug therapy; Z79.82 Long term (current) use of aspirin; Z90.710 Acquired absence of both cervix and uterus; W10.9XXA Fall (on) (from) unspecified stairs and steps, initial encounter
CPT/HCPCS: 73502-26-RT; 73502-RT; 73610-26-LT; 73610-LT; 99283

== ENCOUNTER 2024-03-21 08:14 | Day surgery (SDC) | payer MEDICARE, BC ==
[~2024-03-21 08:14] MED LIST changes: -Lactated Ringers 1,000 ML IV SCH; -Propofol 200 MG/20 ML SDV ONE
[2024-03-21] MEDS: Lactated Ringers 1,000 ML IV SCH (08:40)
[2024-03-21] MEDS ORDERED: propofoL 50 ML ONE (10:17)
[2024-03-21 12:56] VITALS: BP 96/59; PULSE 80
== END 2024-03-21 12:15 | disposition home or self-care (01) ==
LOC: MW.SDS 08:14
PROVIDERS: ATTEND Surgery
DX: D12.4 Benign neoplasm of descending colon (principal); K57.30 Diverticulosis of large intestine without perforation or abscess without bleeding; Z86.010 Personal history of colon polyps; K21.9 Gastro-esophageal reflux disease without esophagitis; E78.00 Pure hypercholesterolemia, unspecified; E03.9 Hypothyroidism, unspecified; Z79.82 Long term (current) use of aspirin; Z79.890 Hormone replacement therapy; Z79.899 Other long term (current) drug therapy; Z91.041 Radiographic dye allergy status
CPT/HCPCS: 36415; 45380; 74018; 74177; 80053; 83605; 83690; 84484; 85025; 85610; 93005; 96361; 96374; 96375; 96376; 99284; J2270; J2405; J2704; J3490; J7030; J7120; Q9967; 00811; 88305; 93010; 99100; 99285

== ENCOUNTER 2024-03-21 18:46 | Emergency (ER) | payer MEDICARE, BC ==
[2024-03-21] MEDS: Sodium Chloride 0.9% 500 ML IV STA (19:42)
[2024-03-21] MEDS: Sodium Chloride 0.9% 2.5 ML Syringe FLUSH PRN (19:43)
[2024-03-21] MEDS: Sodium Chloride 0.9% 10 ML Syringe FLUSH PRN (19:43)
[2024-03-21] MEDS: Morphine 4 MG/ML Syringe IVPUSH ONE ×2 (19:44→21:16)
[2024-03-21] MEDS: Ondansetron 4 MG/2 ML SDV IVPUSH ONE (19:44)
[2024-03-21 19:48] LABS: BASOPHILS ABSOLUTE AUTO 0.02 K/uL (0.00-0.20); BASOPHILS PERCENT AUTO 0.2 % (0.0-1.0); EOSINOPHILS ABSOLUTE AUTO 0.02 K/uL (0.00-0.45); EOSINOPHILS PERCENT AUTO 0.2 % (0.0-6.0); HEMATOCRIT 37.9 % (37.0-47.0); IMMATURE GRAN ABSOLUTE AUTO 0.03 K/uL (0.00-0.05); IMMATURE GRAN PERCENT AUTO 0.3 % (0.0-0.4); LYMPHOCYTES ABSOLUTE AUTO 1.38 K/uL (1.00-4.80); LYMPHOCYTES PERCENT AUTO 12.2 % (24.0-44.0); MEAN CORPUSCULAR HEMOGLOBIN 30.8 pg (28.0-32.0); MEAN CORPUSCULAR HGB CONC 34.3 g/dL (32.0-36.0); MEAN CORPUSCULAR VOLUME 89.8 fL (83.0-99.0); MEAN PLATELET VOLUME 9.8 fL (9.4-12.3); MONOCYTES ABSOLUTE AUTO 0.89 K/uL (0.00-0.80); MONOCYTES PERCENT AUTO 7.8 % (0.0-8.0); NEUTROPHILS ABSOLUTE AUTO 9.01 K/uL (1.80-7.70); NEUTROPHILS PERCENT AUTO 79.3 % (41.0-71.0); PLATELET COUNT,PLT 177 K/uL (150-400); RED BLOOD CELL COUNT 4.22 M/uL (4.10-5.30); WHITE BLOOD CELL COUNT,WBC 11.35 K/uL (3.9-11.3)
[2024-03-21 19:52] LABS: INR 1.1 (0.86-1.11)
[2024-03-21 20:06] LABS: ALBUMIN 3.1 g/dL (3.4-5.0); BILIRUBIN TOTAL 0.4 mg/dL (0.2-1.0); CALCIUM 8.6 mg/dL (8.5-10.1); CARBON DIOXIDE,CO2 27.1 mmol/L (21.0-32.0); EST CRCL DRUG DOSING (CG) 47.41 mL/min; POTASSIUM,K 3.8 mmol/L (3.5-5.1); PROTEIN TOTAL,TP 6.1 g/dL (6.4-8.2)
[2024-03-21] MEDS: Iopamidol 755 MG/ML 500 ML Multipack Bottle IVPUSH STA (20:34)
[2024-03-21 20:45] LABS: LACTIC ACID 1.6 mmol/L (0.4-2.0)
[2024-03-21 23:53] VITALS: BP 116/68; PULSE 71
== END 2024-03-21 21:46 | disposition home or self-care (01) ==
LOC: MW.ED 18:46
DX: R10.84 Generalized abdominal pain (principal); E78.00 Pure hypercholesterolemia, unspecified; K21.9 Gastro-esophageal reflux disease without esophagitis; E03.9 Hypothyroidism, unspecified; Z90.710 Acquired absence of both cervix and uterus; Z79.899 Other long term (current) drug therapy; Z79.82 Long term (current) use of aspirin; Z91.041 Radiographic dye allergy status
CPT/HCPCS: 36415; 74018; 74177; 80053; 83605; 83690; 84484; 85025; 85610; 93005; 96361; 96374; 96375; 96376; 99284; J2270; J2405; J3490; J7030; Q9967; 93010; 99285

== ENCOUNTER 2024-06-25 19:17 | Emergency (ER) | payer MEDICARE, BC ==
[2024-06-25] MEDS: Ondansetron 4 MG/2 ML SDV IVPUSH ONE (19:46)
[2024-06-25] MEDS: Sodium Chloride 0.9% 1,000 ML IV ONE (19:46)
[2024-06-25] MEDS: Famotidine 20 MG/2 ML SDV IVPUSH ONE (19:46)
[2024-06-25 19:51] LABS: APPEARANCE,URINE SLT CLOUDY; BASOPHILS ABSOLUTE AUTO 0.01 K/uL (0.00-0.20); BASOPHILS PERCENT AUTO 0.1 % (0.0-1.0); BILIRUBIN,URINE NEGATIVE (NEGATIVE); COLOR,URINE YELLOW; EOSINOPHILS ABSOLUTE AUTO 0.01 K/uL (0.00-0.45); EOSINOPHILS PERCENT AUTO 0.1 % (0.0-6.0); GLUCOSE,URINE NEGATIVE (NEGATIVE); HEMATOCRIT 37.8 % (37.0-47.0); HEMOGLOBIN 13.4 g/dL (12.0-16.0); IMMATURE GRAN ABSOLUTE AUTO 0.02 K/uL (0.00-0.05); IMMATURE GRAN PERCENT AUTO 0.3 % (0.0-0.4); KETONES,URINE NEGATIVE (NEGATIVE); LEUKOCYTE ESTERASE,URINE SMALL (NEGATIVE); LYMPHOCYTES ABSOLUTE AUTO 1.13 K/uL (1.00-4.80); LYMPHOCYTES PERCENT AUTO 16.6 % (24.0-44.0); MEAN CORPUSCULAR HEMOGLOBIN 31.9 pg (28.0-32.0); MEAN CORPUSCULAR HGB CONC 35.4 g/dL (32.0-36.0); MEAN PLATELET VOLUME 9.5 fL (9.4-12.3); MONOCYTES ABSOLUTE AUTO 0.56 K/uL (0.00-0.80); MONOCYTES PERCENT AUTO 8.2 % (0.0-8.0); NEUTROPHILS ABSOLUTE AUTO 5.08 K/uL (1.80-7.70); NEUTROPHILS PERCENT AUTO 74.7 % (41.0-71.0); NITRITE,URINE NEGATIVE (NEGATIVE); OCCULT BLOOD,URINE TRACE-INTACT (NEGATIVE); PLATELET COUNT,PLT 172 K/uL (150-400); PROTEIN,URINE NEGATIVE (NEGATIVE); UROBILINOGEN,URINE 0.2 EU/dL (<2.0); WHITE BLOOD CELL COUNT,WBC 6.81 K/uL (3.9-11.3)
[2024-06-25] MEDS: Acetaminophen 500 MG Tab PO ONE (20:02)
[2024-06-25] MEDS: Ketorolac 30 MG/ML SDV IVPUSH ONE (20:02)
[2024-06-25 20:03] LABS: RBC,URINE 0-2 (0-2/HPF)
[2024-06-25 20:04] LABS: BACTERIA,URINE RARE (NEGATIVE); EPITHELIAL CELLS,URINE RARE (NONE-FEW)
[2024-06-25 20:14] LABS: A/G RATIO 1.1 (0.9-1.6); ALBUMIN 3.4 g/dL (3.4-5.0); BILIRUBIN TOTAL 0.5 mg/dL (0.2-1.0); CALCIUM 8.7 mg/dL (8.5-10.1); CARBON DIOXIDE,CO2 24.6 mmol/L (21.0-32.0); EST CRCL DRUG DOSING (CG) 47.41 mL/min; POTASSIUM,K 3.8 mmol/L (3.5-5.1); PROTEIN TOTAL,TP 6.6 g/dL (6.4-8.2)
[2024-06-25 20:42] VITALS: BP 104/57; PULSE 78
== END 2024-06-25 20:41 | disposition home or self-care (01) ==
LOC: MW.ED 19:17
DX: R11.2 Nausea with vomiting, unspecified (principal); E78.00 Pure hypercholesterolemia, unspecified; E03.9 Hypothyroidism, unspecified; Z86.16 Personal history of COVID-19; Z90.710 Acquired absence of both cervix and uterus; Z91.041 Radiographic dye allergy status; Z79.82 Long term (current) use of aspirin; Z79.890 Hormone replacement therapy; Z79.899 Other long term (current) drug therapy
CPT/HCPCS: 36415; 80053; 81001; 83690; 85025; 87086; 96361; 96374; 96375; 99284; A9270; J1885; J2405; J3490; J7030

== ENCOUNTER 2024-06-30 07:09 | Emergency (ER) | payer MEDICARE, BC ==
[2024-06-30 09:36] VITALS: BP 114/75; PULSE 74
== END 2024-06-30 09:33 | disposition home or self-care (01) ==
LOC: MW.ED 07:09
DX: K59.00 Constipation, unspecified (principal)
CPT/HCPCS: 74018; 74018-26; 99283; 99284